=== PATIENT | female | born 1955 | race Caucasian/White ===

== ENCOUNTER 2017-06-05 19:41 | Inpatient (IN) | payer OTHER, SELFPAY ==
[~2017-06-05] VITALS: Ht 160 cm; Wt 37.6 kg
[2017-06-05] MEDS ORDERED: AZITHROMYCIN 500MG+NS 250ML 250 ML IV ONE (20:30)
[2017-06-05] MEDS ORDERED: CEFTRIAXONE SODIUM 1 GM ONE (20:30)
[2017-06-05] MEDS ORDERED: METHYLPREDNISOLONE SOD SUCC 40MG/ML 1ML ONE (20:30)
[2017-06-05 21:03] LABS: BASOPHILS % (AUTO) 0.5 % (0.0-5.0); EOSINOPHILS % (AUTO) 0.2 % (0.0-8.0); HEMATOCRIT 41.8 % (36-48); LYMPHOCYTES % (AUTO) 14.5 % (21.0-51.0); MEAN CORPUSCULAR HEMOGLOBIN 33.8 pg (27.0-33.0); MEAN CORPUSCULAR HGB CONC 34.4 g/dL (32.0-36.0); MEAN CORPUSCULAR VOLUME 98.3 fL (79-99); MONOCYTES % (AUTO) 6.5 % (3.0-13.0); NEUTROPHILS % (AUTO) 78.3 % (40.0-77.0); PLATELET COUNT (AUTO) 311 K/uL (130-400); RED BLOOD CELL COUNT(AUTO) 4.26 MIL/uL (4.00-5.50); RED CELL DISTRIBUTION WIDTH 13.7 % (11.0-15.5)
[2017-06-05] MEDS ORDERED: IPRATROPIUM/ALBUTEROL SULFATE 3 ML SOLUTION IH ONE (21:29)
[2017-06-05 21:58] LABS: CREATININE 0.7 mg/dL (0.5-1.5)
[2017-06-05 22:05] LABS: ALBUMIN 3.8 g/dL (3.5-5.0); BILIRUBIN,TOTAL 0.5 mg/dL (0.2-1.0); TOTAL PROTEIN, SERUM 6.9 g/dL (6.0-8.3)
[2017-06-06] MEDS ORDERED: METHYLPREDNISOLONE SOD SUCC 40MG/ML 1ML ONE ×2 (05:47→14:30)
[2017-06-06 06:02] LABS: BASOPHILS % (AUTO) 0.3 % (0.0-5.0); EOSINOPHILS % (AUTO) 0.1 % (0.0-8.0); LYMPHOCYTES % (AUTO) 8.4 % (21.0-51.0); MEAN CORPUSCULAR HEMOGLOBIN 33.4 pg (27.0-33.0); MEAN CORPUSCULAR VOLUME 98.3 fL (79-99); MONOCYTES % (AUTO) 1.3 % (3.0-13.0); NEUTROPHILS % (AUTO) 89.9 % (40.0-77.0); PLATELET COUNT (AUTO) 288 K/uL (130-400); RED BLOOD CELL COUNT(AUTO) 4.38 MIL/uL (4.00-5.50); RED CELL DISTRIBUTION WIDTH 13.6 % (11.0-15.5); WHITE BLOOD COUNT (AUTO) 5.7 K/uL (4.8-10.8)
[2017-06-06 06:12] LABS: CREATININE 0.6 mg/dL (0.5-1.5); POTASSIUM 4.4 mmol/L (3.5-5.1)
[2017-06-06 06:17] LABS: ALBUMIN 3.5 g/dL (3.5-5.0); BILIRUBIN,TOTAL 0.4 mg/dL (0.2-1.0); TOTAL PROTEIN, SERUM 5.9 g/dL (6.0-8.3)
[2017-06-06] MEDS ORDERED: HYDROCODONE/ACETAMINOPHEN 7.5/325 MG TAB ONE (11:06)
[2017-06-06] MEDS ORDERED: IPRATROPIUM/ALBUTEROL SULFATE 3 ML SOLUTION IH ONE (14:45)
[2017-06-06] MEDS ORDERED: ACETAMINOPHEN 325 MG TAB ONE (17:31)
[2017-06-06 18:08] VITALS: BP 149/90
[2017-06-06] MEDS ORDERED: ENOXAPARIN SODIUM 40 MG/0.4 ML SYRINGE SQ SCH (18:56)
[2017-06-06] MEDS ORDERED: CLONIDINE HCL 0.1 MG TABLET PO PRN (19:00)
[2017-06-06] MEDS ORDERED: POTASSIUM CHLORIDE 20 MEQ ERTAB PO PRN (19:00)
[2017-06-06] MEDS ORDERED: ONDANSETRON HCL 4 MG/2 ML VIAL IVP PRN (19:00)
[2017-06-06] MEDS ORDERED: DEXTROSE 50%-WATER 50 ML DISP.SYRIN IV PRN (19:00)
[2017-06-06] MEDS ORDERED: ZOLPIDEM TARTRATE 5 MG TAB PO PRN (19:00)
[2017-06-06] MEDS ORDERED: DIPHENHYDRAMINE HCL 25 MG CAPSULE PO PRN (19:00)
[2017-06-06] MEDS ORDERED: LACTULOSE 20 GM/30 ML UDCUP PO PRN (19:00)
[2017-06-06] MEDS ORDERED: ACETAMINOPHEN 325 MG TAB PO PRN (19:00)
[2017-06-06] MEDS ORDERED: POTASSIUM CHLORIDE 10% ELIXIR 20 MEQ/15 ML UDCUP PO PRN (19:00)
[2017-06-06] MEDS ORDERED: GLUCAGON 1MG KIT 1 MG ML IM PRN (19:00)
[2017-06-06] MEDS ORDERED: CEFTRIAXONE SODIUM 1 GM IVP SCH (19:00)
[2017-06-06] MEDS ORDERED: LIDOCAINE HCL-MPF 1% 2ML VIAL IJ PRN (19:00)
[2017-06-06] MEDS ORDERED: POTASSIUM CHLORIDE 20MEQ/100ML 100 ML IV PRN (19:00)
[2017-06-06] MEDS ORDERED: GUAIFENESIN-DM 200/20 MG 10 ML PO PRN (19:00)
[2017-06-06] MEDS ORDERED: IPRATROPIUM/ALBUTEROL SULFATE 3 ML SOLUTION IH PRN (19:00)
[2017-06-06] MEDS ORDERED: SODIUM CHLORIDE 0.9% 10 ML VIAL IVP SCH (19:00)
[2017-06-06 20:00] VITALS: BP 125/50
[2017-06-06] MEDS ORDERED: AZITHROMYCIN 500MG+NS 250ML 250 ML IV SCH (20:00)
[2017-06-06] MEDS: HYDROCODONE/ACETAMINOPHEN 7.5/325 MG TAB PO PRN (20:55)
[2017-06-06] MEDS: METHYLPREDNISOLONE SOD SUCC 125MG/2ML VIAL IVP SCH (20:55)
[2017-06-06] MEDS ORDERED: FAMOTIDINE 20MG TAB 20 MG TAB PO SCH (21:00)
[2017-06-06] MEDS: INSULIN R PO SSI SQ SCH (21:09)
[2017-06-06] MEDS: IPRATROPIUM/ALBUTEROL SULFATE 3 ML SOLUTION IH SCH (23:33)
[2017-06-06 23:52] VITALS: BP 125/68
[2017-06-07] VITALS: BP 125/68
[2017-06-07 03:57] VITALS: BP 147/76
[2017-06-07 04:07] LABS: HEMATOCRIT 41.5 % (36-48); MEAN CORPUSCULAR HEMOGLOBIN 34.2 pg (27.0-33.0); MEAN CORPUSCULAR HGB CONC 34.5 g/dL (32.0-36.0); MEAN CORPUSCULAR VOLUME 99.3 fL (79-99); PLATELET COUNT (AUTO) 322 K/uL (130-400); RED BLOOD CELL COUNT(AUTO) 4.18 MIL/uL (4.00-5.50); RED CELL DISTRIBUTION WIDTH 13.4 % (11.0-15.5); WHITE BLOOD COUNT (AUTO) 10.6 K/uL (4.8-10.8)
[2017-06-07 04:18] LABS: ALBUMIN 3.2 g/dL (3.5-5.0); BILIRUBIN,TOTAL 0.3 mg/dL (0.2-1.0); CREATININE 0.8 mg/dL (0.5-1.5); POTASSIUM 4.3 mmol/L (3.5-5.1); TOTAL PROTEIN, SERUM 5.6 g/dL (6.0-8.3)
[2017-06-07] MEDS: METHYLPREDNISOLONE SOD SUCC 125MG/2ML VIAL IVP SCH (05:46)
[2017-06-07] MEDS: HYDROCODONE/ACETAMINOPHEN 7.5/325 MG TAB PO PRN (06:03)
[2017-06-07] MEDS: INSULIN R PO SSI SQ SCH (06:03)
[2017-06-07] MEDS: IPRATROPIUM/ALBUTEROL SULFATE 3 ML SOLUTION IH SCH (06:49)
[2017-06-07] MEDS ORDERED: PRED20TA3 PO (07:04)
[2017-06-07] MEDS ORDERED: PNEUMOCOCCAL VACCINE POLYVALENT 0.5 ML/VIAL [PPV] IM SCH (07:30)
[2017-06-07] MEDS ORDERED: FLU VACC QS2017-18 36MOS UP/PF 60 MCG/0.5 ML ML IM SCH (07:30)
[2017-06-07 08:29] VITALS: BP 138/81
[2017-06-07] MEDS ORDERED: ENOXAPARIN SODIUM 40 MG/0.4 ML SYRINGE SQ SCH (09:00)
[2017-06-07] MEDS ORDERED: CEFTRIAXONE SODIUM 1 GM IVP SCH (13:00)
[2017-06-07] MEDS ORDERED: AZITHROMYCIN 500MG+NS 250ML 250 ML IV SCH (13:00)
== END 2017-06-07 10:50 | disposition home or self-care (01) | DRG 192 ==
LOC: EDH 19:41 → EDHIP 19:42 → 3AH 06-06 17:34
PROVIDERS: ADMIT Internal Medicine; ATTEND Internal Medicine
PROC: 3E0234Z Introduction of Serum, Toxoid and Vaccine into Muscle, Percutaneous Approach (ICD-10-PCS; principal; 2017-06-05)
PROC: 3E0234Z Introduction of Serum, Toxoid and Vaccine into Muscle, Percutaneous Approach (ICD-10-PCS; 2017-06-05)
DX: J44.1 Chronic obstructive pulmonary disease with (acute) exacerbation (principal); F17.210 Nicotine dependence, cigarettes, uncomplicated; Z23 Encounter for immunization
CPT/HCPCS: 36415; 71046; 71250; 80053; 82948; 85025; 85027; 90732; 93005; 94010; 94640; 94664; G0008; G0009; J0456; J0696; J1815; J2920; J2930; Q2038

== ENCOUNTER 2021-10-11 13:33 | Emergency (ER) | payer MEDICARE ==
[~2021-10-11] VITALS: Ht 162.6 cm; Wt 45.4 kg
[~2021-10-11 13:33] MED LIST: PRED20TA3 PO
[2021-10-11 14:15] LABS: BASOPHILS % (AUTO) 0.4 % (0.0-5.0); EOSINOPHILS % (AUTO) 0.4 % (0.0-8.0); HEMATOCRIT 42.1 % (36-48); LYMPHOCYTES % (AUTO) 12.7 % (21.0-51.0); MEAN CORPUSCULAR HEMOGLOBIN 30.4 pg (27.0-33.0); MEAN CORPUSCULAR HGB CONC 32.5 g/dL (32.0-36.0); MEAN CORPUSCULAR VOLUME 93.3 fL (79-99); MONOCYTES % (AUTO) 7.9 % (3.0-13.0); NEUTROPHILS % (AUTO) 75.1 % (40.0-77.0); PLATELET COUNT (AUTO) 485 K/uL (130-400); RED BLOOD CELL COUNT(AUTO) 4.51 MIL/uL (4.00-5.50); RED CELL DISTRIBUTION WIDTH 12.3 % (11.0-15.5); WHITE BLOOD COUNT (AUTO) 17.6 K/uL (4.8-10.8)
[2021-10-11 14:48] LABS: CREATININE 1.1 mg/dL (0.5-1.5); POTASSIUM 3.9 mmol/L (3.5-5.1)
[2021-10-11 14:54] LABS: ALBUMIN 3.1 g/dL (3.5-5.0); BILIRUBIN,TOTAL 0.7 mg/dL (0.2-1.0); TOTAL PROTEIN, SERUM 6.6 g/dL (6.0-8.3)
[2021-10-11] MEDS ORDERED: LEVO500T90 PO (15:18)
[2021-10-11] MEDS ORDERED: CEFTRIAXONE 1G VIAL ONE (15:23)
[2021-10-11] MEDS ORDERED: CEFTRIAXONE 1G VIAL IVP ONE (15:30)
[2021-10-11] MEDS ORDERED: LIDOCAINE HCL-MPF 1% 2ML VIAL IV SCH (15:30)
[2021-10-11] MEDS ORDERED: AZITHROMYCIN 250 MG TABLET PO ONE (15:30)
[2021-10-11 15:31] VITALS: BP 115/47
== END 2021-10-11 15:30 | disposition home or self-care (01) ==
LOC: EDH 13:33
DX: J43.9 Emphysema, unspecified (principal); D72.829 Elevated white blood cell count, unspecified; I10 Essential (primary) hypertension; Z88.6 Allergy status to analgesic agent
CPT/HCPCS: 36415; 71045; 80053; 83605; 85025; 87040 ×2; 93005; 96374; 99285; J0696; J3490

== ENCOUNTER 2024-09-16 12:45 | Inpatient (IN) | payer MEDICARE ==
[~2024-09-16] VITALS: Ht 160 cm; Wt 41.3 kg
[~2024-09-16 12:45] MED LIST changes: +LEVO-70 PO
--- NOTE | 2024-09-16 12:57 | NUR ---
PT JUST NOW PLACED IN MY ED BED 11 BY [facility].
[2024-09-16] MEDS: HYDROcodone/APAP 5/325 1 TAB TABLET PO ONE (13:00)
--- NOTE | 2024-09-16 13:13 | ERN ---
General Chief Complaint: Shortness of Breath Stated Complaint: SOB Time Seen by MD: 12:49 History of Present Illness Initial Comments 69F brought in by EMS from home for respiratory distress, cough, and hypoxia. Patient reports for the last week or so she was had increased cough and sputum production. No fevers. She has a history of COPD. She was oxygen to use at home as needed. She reports lately she has been using it more. EMS found the patient to have an oxygen saturation of 83% on room air. Patient was cachectic. She was mildly tachypneic. She was wheezing all over. She was nontoxic. She denies any vomiting or diarrhea. She does report some pleuritic type chest discomfort, which is chronic, she takes [place] b.i.d.. She takes Trelegy. 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 Allergies: Coded Allergies: tramadol (Unverified Allergy, Severe, itching, 06/06/17) Home Meds Active Scripts Levofloxacin (Levofloxacin) 500 Mg Tablet, 1 TAB PO DAILY for 10 Days, #10 TAB 0 Refills Prov:ASIF PEARSON 10/11/21 Reported Medications Prednisone (Prednisone) 20 Mg Tablet, 20 MG PO 2 tabs x2 days, then, TAB 06/07/17 Past Medical History Past Medical History: COPD, Hypertension Past Surgical History: Other Surgical History Other: LUNG SX Family History Family History: Negative Social History Social History: Negative ROS Dictation CONSTITUTIONAL: No chills, no fever, no weakness, no diaphoresis, no malaise. HEAD/FACE: No signs of trauma. EENT: No eye pain, no blurred vision, no tearing, no double vision, no ear pain, no ear discharge, no nose pain, no nasal congestion, no throat pain, no throat swelling, no mouth pain. RESPIRATORY: Dyspnea and productive cough CARDIOVASCULAR: No chest pain, no edema, no palpitations, no syncope. GASTROINTESTINAL/ABDOMINAL: No abdominal pain, no constipation, no diarrhea, no nausea, no vomiting. GENITOURINARY: No abnormal discharge, no dysuria, no frequent urination, no hematuria. No complaints of pain in the genitals. MUSCULOSKELETAL: No back pain, no gout, no joint pain, no joint swelling, no muscle pain, no muscle stiffness, no neck pain. INTEGUMENTARY: No change in color, no change in hair/nails, no dryness, no lesion, no lumps, no rash. NEUROLOGICAL/PSYCH: No anxiety, not depressed, no emotional problem, no headache, no numbness, no pre-existing deficit, no history of seizures, no tremors, no weakness. HEMATOLOGIC/LYMPHATIC: Not anemic, no history of blood clots, no apparent bleeding, no bruising, glands not swollen. All Systems Negative, Except as Noted. Physical Exam Physical Exam Dictation VITAL SIGNS: Reviewed. GENERAL APPEARANCE: Alert, oriented x3, mild tachypnea distress, cachectic HEAD AND FACE: Non-traumatic. EYES: PERRL, pink conjunctivas, eyelid no trauma, anterior chamber clear. EARS: Pinnas intact and no signs of trauma or erythema. Ear canals clear and no discharge. TMs no erythema. NOSE: No discharge, no bleeding. OROPHARYNX: Mouth normal, teeth no caries, tongue pink. Pharynx clear, no erythema. Tonsils no exudates, no abscesses noted. Mucous membrane moist. NECK: Supple, non-tender, no thyromegaly, no masses, no JVD, no bruits. BREAST: Deferred. CHEST: No tenderness, no crepitus, no paradoxical movement, no retractions. LUNGS: Bilateral wheezing prolonged expiratory phase rhonchus. Mild tachypnea. Minimal accessory muscle use HEART: Regular rate, regular rhythm, no murmur, no gallops. VASCULAR: No peripheral edema. ABDOMEN: Soft, positive bowel sounds, nondistended, no guarding, nontender, no rebound, no masses no hepatomegaly, no splenomegaly, no Jennings's sign, no hernias. RECTAL: Deferred. GENITAL: Deferred. NEUROLOGICAL: Normal speech, gross motor function intact, gross sensory function intact. MUSCULOSKELETAL: Neck nontender, full range of motion, back nontender, full range of motion. EXTREMITIES: Nontender, full range of motion. SKIN: Color pink, dry, no turgor, no rash, no lacerations, no abrasions, no contusions. LYMPHATICS: Deferred. Results Laboratory and Microbiology Lab and Micro Result Laboratory Tests Test 09/16/24 13:01 09/16/24 13:16 White Blood Count 18.5 K/uL (4.8-10.8) H Red Blood Count 3.83 MIL/uL (4.00-5.50) L Hemoglobin 11.9 g/dL (12.0-16.0) L Hematocrit 36.2 % (36-48) Mean Corpuscular Volume 94.5 fL (79-99) Mean Corpuscular Hemoglobin 31.1 pg (27.0-33.0) Mean Corpuscular Hemoglobin Concent 32.9 g/dL (32.0-36.0) Red Cell Distribution Width 11.7 % (11.0-15.5) Platelet Count 520 K/uL (130-400) H Mean Platelet Volume 9.1 fL (7.5-10.5) Immature Granulocyte % (Auto) 1.0 % (0-1) Neutrophils (%) (Auto) 83.1 % (40.0-77.0) H Lymphocytes (%) (Auto) 7.7 % (21.0-51.0) L Monocytes (%) (Auto) 7.8 % (3.0-13.0) Eosinophils (%) (Auto) 0.1 % (0.0-8.0) Basophils (%) (Auto) 0.3 % (0.0-5.0) Neutrophils # (Auto) 15.4 K/uL (1.8-7.7) H Lymphocytes # (Auto) 1.4 K/uL (1.0-4.8) Monocytes # (Auto) 1.4 K/uL (0.1-1.0) H Eosinophils # (Auto) 0.01 K/uL (0.00-0.70) Basophils # (Auto) 0.05 K/uL (0.00-0.20) Absolute Immature Granulocyte (auto 0.19 K/uL (0-1) Nucleated Red Blood Cells 0.0 % (0.0-0.19) White Cell Morphology Comment See comments Sodium Level 141 mmol/L (136-145) Potassium Level 3.9 mmol/L (3.5-5.1) Chloride Level 100 mmol/L (101-111) L Carbon Dioxide Level 35 mmol/L (21-32) H Blood Urea Nitrogen 23 mg/dL (7-18) H Creatinine 1.0 mg/dL (0.5-1.0) Glomerular Filtration Rate Calc 60 mL/min (>90) Random Glucose 119 mg/dL (70-105) H Total Calcium 9.2 mg/dL (8.5-10.1) Total Creatine Kinase 78 U/L (21-232) Troponin I High Sensitivity 21.4 ng/L (4-50) B-Type Natriuretic Peptide 282 pg/mL (0-100) H Blood Gas Specimen Type Arterial Arterial Blood pH 7.405 (7.350-7.450) Arterial Blood Partial Pressure CO2 45 mmHg (32-45) Arterial Blood Partial Pressure O2 77.6 mmHg (83.0-108.0) L Arterial Blood HCO3 27.3 mmol/L (21.0-28.0) Arterial Blood Oxygen Saturation 94.7 % (94.0-98.0) Arterial Blood Base Excess 2.1 mmol/L (-2.0-3.0) Hemoglobin (Blood Gas) 12.9 g/dL (12.0-16.0) Sodium (Blood Gas) 137 MMOL/L (136-145) Bedside Potassium (Blood Gas) 3.9 MMOL/L (3.4-4.5) Bedside Chloride (Blood Gas) 100 MMOL/L (98-107) Bedside Glucose (Blood Gas) 123 MG/DL (65-95) H Bedside Ionized Calcium (Blood Gas) 1.17 MMOL/L (1.15-1.33) Bedside Lactic Acid (Blood Gas) 1.48 MMOL/L (0.36-0.75) H Blood Gas Temperature 37.0 CELSIUS (35.5-37.0) Blood Gas Flow-by 3.00 L/min (0.00-15.00) Blood Gas Vent Mode NC (ROOM AIR) FiO2 32.0 % Blood Gas Specimen Comment RR, MDM CC: Respiratory distress Historian: Patient Comorbidities: COPD chronic pain Limitations by social determinants of health: None Differential diagnosis: COPD exacerbation, pneumonia, viral URI, sepsis, hypoxia, hypercapnia, other. Vital signs: Tachypneic breathing 20 times a minute, oxygen saturation 94% on 3 L nasal cannula. EKG: Sinus rhythm rate of 89 normal axis good R-wave progression intervals are stable no STEMI. Independently interpreted by me. Labs (independently ordered and interpreted by me ): Leukocytosis 18.5 K, left shift 83% neutrophils. No bands. Normocytic anemia hemoglobin 11.9. ABG PaO2 of 77 on 3 L nasal cannula. The pCO2 is 45. Lactic acid 1.4. Chemistry shows carbon dioxide of 35 chronic, elevated BUN to creatinine ratio consistent with dehydration. Troponin stable BNP stable CK stable. CXR (independently ordered and interpreted by me ): Emphysematous lungs, no cardiomegaly, possible infiltrate in the left upper lobe. Treatment in ED: DuoNeb, IV steroids, IV Rocephin and nose for medicine, IV fluids, p.o. [place]. Plan: We will admit for COPD exacerbation Consultation: Dr. Lara for admission ED Course Orders Procedure Category Date Status Time Arterial Blood Gas RT 09/16/24 Transmitted 12:50 Cbc With Differential LAB 09/16/24 Complete 12:50 B-Type Natriuretic LAB 09/16/24 Complete Peptide 12:50 Cardiac Panel LAB 09/16/24 Complete 12:50 Chest 1vw RAD 09/16/24 Taken 12:50 12 Lead Ekg Tracing- EKG 09/16/24 Complete Technical 12:50 Lactated Ringers PHA 09/16/24 In Process 1000ml (Lactated 13:00 Ipratropium/Albuterol PHA 09/16/24 Complete Neb (Duoneb) 13:00 Methylprednisolone PHA 09/16/24 Complete Succ 125mg (Solu-Medr 13:00 Basic Metabolic Panel LAB 09/16/24 Complete 12:50 Hydrocodone/Apap PHA 09/16/24 Complete 5/325 ([place] 5/325mg) 13:00 Azithromycin 500mg+Ns PHA 09/16/24 In Process 250ml (Azithromyci 14:00 Ceftriaxone 1g Vial PHA 09/16/24 In Process (Rocephine 1g Inj) 13:00 Arterial Blood Gas LAB 09/16/24 Complete Arterial + 13:16 Blood Cult OLEKSANDR 09/16/24 In Process 13:53 Current Medications Medications (Trade) Dose Ordered Sig/Ivvi Route PRN Reason Start Time Stop Time Status Last Admin Dose Admin Acetaminophen/ Hydrocodone Bitart (NORco 5/325MG) 1 tab ONCE ONCE PO 09/16/24 13:00 09/16/24 13:01 DC Albuterol (DUOneb) 1 udvial ONCE ONCE IH 09/16/24 13:00 09/16/24 13:01 DC 09/16/24 13:20 Azithromycin 250 ml @ 250 mls/hr Q24H IVPB 09/16/24 14:00 09/26/24 13:59 5/6/25 14:46 Ceftriaxone Sodium (ROCEphine 1G INJ) 1 gm Q24H IVPB 09/16/24 13:00 09/26/24 12:59 09/16/24 14:46 Lactated Ringer's 1,000 ml @ 125 mls/hr ONCE ONCE IV 09/16/24 13:00 09/16/24 20:59 09/16/24 13:34 Methylprednisolone Sodium Succinate (Solu-medROL 125MG) 125 mg ONCE ONCE IVP 09/16/24 13:00 09/16/24 13:01 DC 09/16/24 13:34 Vital Signs Date Time Temp Pulse Resp B/P (MAP) Pulse Ox O2 Delivery O2 Flow Rate FiO2 09/16/24 13:21 96 28 09/16/24 12:46 98.6 84 24 120/80 95 Nasal Cannula 3.0 DX & DISP Disposition: Inpatient Departure Impression: Primary Impression: COPD with acute exacerbation Additional Impression: Respiratory failure with hypoxia Condition: Stable Referrals: ABE LARA MD (PCP) ABELARDO UMAÑA DO September 16, 2024 13:13
--- NOTE | 2024-09-16 13:16 | NUR ---
PER EMS REPORT. HX COPD WAS GIVEN NEB TX W/SATS INCREASING FROM MID 80'S TO LOW 90"S. PT USES HOME OXYGEN
[2024-09-16 13:18] LABS: ABG BASE EXCESS 2.1 mmol/L (-2.0-3.0); ABG HCO3 27.3 mmol/L (21.0-28.0); ABG OXYGEN SATURATION 94.7 % (94.0-98.0); ABG PCO2 45 mmHg (32-45); ABG PH 7.405 (7.350-7.450); CARBON MONOXIDE 0.4 % (0.5-1.5); HHb 5.3; PO2, ARTERIAL BG 77.6 mmHg (83.0-108.0); VENT MODE, BG NC (ROOM AIR)
[2024-09-16] MEDS: IpraTROPium/alBUTERol SULFATE 3 ML SOLUTION IH ONE (13:20)
[2024-09-16 13:21] VITALS: PULSE 96; RESP 28
[2024-09-16 13:25] LABS: BASOPHILS # (AUTO) 0.05 K/uL (0.00-0.20); BASOPHILS % (AUTO) 0.3 % (0.0-5.0); EOSINOPHILS # (AUTO) 0.01 K/uL (0.00-0.70); EOSINOPHILS % (AUTO) 0.1 % (0.0-8.0); HEMATOCRIT 36.2 % (36-48); IMMATURE GRANULOCYTE ABSOLUTE 0.19 K/uL (0-1); LYMPHOCYTES # (AUTO) 1.4 K/uL (1.0-4.8); LYMPHOCYTES % (AUTO) 7.7 % (21.0-51.0); MEAN CORPUSCULAR HEMOGLOBIN 31.1 pg (27.0-33.0); MEAN CORPUSCULAR HGB CONC 32.9 g/dL (32.0-36.0); MEAN CORPUSCULAR VOLUME 94.5 fL (79-99); MONOCYTES # (AUTO) 1.4 K/uL (0.1-1.0); MONOCYTES % (AUTO) 7.8 % (3.0-13.0); NEUTROPHILS # (AUTO) 15.4 K/uL (1.8-7.7); NEUTROPHILS % (AUTO) 83.1 % (40.0-77.0); PLATELET COUNT (AUTO) 520 K/uL (130-400); RED BLOOD CELL COUNT(AUTO) 3.83 MIL/uL (4.00-5.50); RED CELL DISTRIBUTION WIDTH 11.7 % (11.0-15.5); WHITE BLOOD COUNT (AUTO) 18.5 K/uL (4.8-10.8)
[2024-09-16] MEDS: Solu-medROL 125MG VIAL IVP ONE (13:34)
[2024-09-16] MEDS: LACTATED RINGERS 1000ML 1,000 ML IV ONE (13:34)
[2024-09-16 13:35] LABS: POTASSIUM 3.9 mmol/L (3.5-5.1)
--- NOTE | 2024-09-16 13:36 | EKG ---
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
[2024-09-16 13:55] LABS: B-TYPE NATRIURETIC PEPTIDE 282 pg/mL (0-100)
[2024-09-16] MEDS: AZITHROMYCIN 500MG+NS 250ML 250 ML IVPB SCH (14:46)
[2024-09-16] MEDS: cefTRIAXone 1G VIAL IVPB SCH (14:46)
[2024-09-16] MEDS ORDERED: IpraTROPium/alBUTERol SULFATE 3 ML SOLUTION IH PRN (15:00)
[2024-09-16 15:55] VITALS: PULSE 90; RESP 21; O2SAT 95
--- NOTE | 2024-09-16 16:17 | NUR ---
PT ASSISTED OOB TO [facility]SC. OXYGEN WAS REMOVED THEN PLACED BACK ONCE PT BACK ON THE STRETCHER.
--- NOTE | 2024-09-16 16:26 | HMCIMG ---
Exam Type: CHEST 1VW Clinical Information: Dyspnea/SOB Comparison: Chest x-ray October 11, 2021 Findings: Again, there is chronic hyperinflation of the lungs with interstitial pulmonary fibrotic changes of the lung apices and these findings are consistent with COPD and possible interstitial fibrotic chronic changes. There is interval development of an apparent mass lesion involving the left inferior hilum, measuring at least 4.8 cm, not present on the prior exam. This is worrisome for a neoplasm. Consider further evaluation with chest CT without contrast. IMPRESSION: Chronic pulmonary changes and interval development of a mass of the left hilum. CT chest without contrast recommended as next evaluation step.
[2024-09-16] MEDS ORDERED: IpraTROPium/alBUTERol SULFATE 3 ML SOLUTION IH SCH (17:00)
--- NOTE | 2024-09-16 17:44 | NUR ---
FOOD TRAY OFFERED. FOOD CUT UP, TEA PREPARED AND BREAD BUTTERED FOR PT.
[2024-09-16 18:40] VITALS: PULSE 90; RESP 18; O2SAT 97
[2024-09-16] MEDS: IpraTROPium/alBUTERol SULFATE 3 ML SOLUTION IH SCH (18:40)
--- NOTE | 2024-09-16 19:15 | NUR ---
REPORT ENDORSED TO JC SIMS.
--- NOTE | 2024-09-16 19:16 | NUR ---
MEDICDATION RECONCILIATION: NO MEDICATIONS W/PT.
[2024-09-16] MEDS: Solu-medROL 40MG VIAL IVP SCH (20:44)
--- NOTE | 2024-09-16 21:57 | HP ---
HISTORY AND PHYSICAL NOTE DATE OF CONSULTATION: 09/16/24 REASON FOR CONSULTATION: dyspnea HISTORY OF PRESENT ILLNESS: 69F brought in by EMS from home for respiratory distress, cough, and hypoxia. Patient reports for the last week or so she was had increased cough and sputum production. No fevers. She has a history of COPD. She was oxygen to use at home as needed. She reports lately she has been using it more. EMS found the patient to have an oxygen saturation of 83% on room air. Patient was cachectic. She was mildly tachypneic. She was wheezing all over. She was nontoxic. She denies any vomiting or diarrhea. She does report some pleuritic type chest discomfort, which is chronic, she takes [place] b.i.d.. She takes Trelegy. 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 Allergies: Coded Allergies: tramadol (Unverified Allergy, Severe, itching, 06/06/17) Home Meds Active Scripts Levofloxacin (Levofloxacin) 500 Mg Tablet, 1 TAB PO DAILY for 10 Days, #10 TAB 0 Refills Prov:ASIF PEARSON 10/11/21 Reported Medications Prednisone (Prednisone) 20 Mg Tablet, 20 MG PO 2 tabs x2 days, then, TAB 06/07/17 Past History Past Medical History Past Medical History: COPD, Hypertension Past Surgical History: Other Surgical History Other: LUNG SX Family History Family History: Negative Social History Social History: Negative Review of Systems ROS Dictation CONSTITUTIONAL: No chills, no fever, no weakness, no diaphoresis, no malaise. HEAD/FACE: No signs of trauma. EENT: No eye pain, no blurred vision, no tearing, no double vision, no ear pain, no ear discharge, no nose pain, no nasal congestion, no throat pain, no throat swelling, no mouth pain. RESPIRATORY: Dyspnea and productive cough CARDIOVASCULAR: No chest pain, no edema, no palpitations, no syncope. GASTROINTESTINAL/ABDOMINAL: No abdominal pain, no constipation, no diarrhea, no nausea, no vomiting. GENITOURINARY: No abnormal discharge, no dysuria, no frequent urination, no hematuria. No complaints of pain in the genitals. MUSCULOSKELETAL: No back pain, no gout, no joint pain, no joint swelling, no muscle pain, no muscle stiffness, no neck pain. INTEGUMENTARY: No change in color, no change in hair/nails, no dryness, no lesion, no lumps, no rash. NEUROLOGICAL/PSYCH: No anxiety, not depressed, no emotional problem, no headache, no numbness, no pre-existing deficit, no history of seizures, no tremors, no weakness. HEMATOLOGIC/LYMPHATIC: Not anemic, no history of blood clots, no apparent bleeding, no bruising, glands not swollen. All Systems Negative, Except as Noted. ALLERGIES: Coded Allergies: tramadol (Unverified Allergy, Severe, itching, 06/06/17) HOME MEDS: Active Scripts Levofloxacin (Levofloxacin) 500 Mg Tablet, 1 TAB PO DAILY for 10 Days, #10 TAB 0 Refills Prov:ASIF PEARSON 10/11/21 Reported Medications Prednisone (Prednisone) 20 Mg Tablet, 20 MG PO 2 tabs x2 days, then, TAB 06/07/17 INPATIENT MEDS: Current Medications Medications Dose Ordered Sig/Vivi Start Time Stop Time Status Last Admin Azithromycin 250 ml @ 250 mls/hr Q24H 09/16/24 14:00 09/26/24 13:59 09/16/24 14:46 Ceftriaxone Sodium 1 gm Q24H 09/16/24 13:00 09/26/24 12:59 09/16/24 14:46 Enoxaparin Sodium 40 mg DAILY 09/17/24 09:00 10/17/24 08:59 Methylprednisolone Sodium Succinate 80 mg BID 09/16/24 21:00 10/16/24 20:59 09/16/24 20:44 Albuterol 1 UDVIAL Q4PRN PRN 09/16/24 15:00 10/16/24 14:59 Albuterol 1 udvial QIDRESP 09/16/24 18:00 10/16/24 16:59 09/16/24 18:40 VITAL SIGNS Vital Signs Date Time Temp Pulse Resp B/P (MAP) Pulse Ox O2 Delivery O2 Flow Rate FiO2 09/16/24 21:00 98.2 87 18 120/66 100 Nasal Cannula* 3 32 09/16/24 18:40 90 18 N/Cannula Low lpm 2.0 28 09/16/24 18:40 90 18 09/16/24 15:55 90 21 N/Cannula Low lpm 3.0 09/16/24 15:48 87 23 136/85 97 Nasal Cannula* 3 32 09/16/24 13:21 96 28 09/16/24 12:46 98.6 84 24 120/80 95 Nasal Cannula 3.0 PHYSICAL EXAM Physical Exam Physical Exam Physical Exam Dictation VITAL SIGNS: Reviewed. GENERAL APPEARANCE: Alert, oriented x3, mild tachypnea distress, cachectic HEAD AND FACE: Non-traumatic. EYES: PERRL, pink conjunctivas, eyelid no trauma, anterior chamber clear. EARS: Pinnas intact and no signs of trauma or erythema. Ear canals clear and no discharge. TMs no erythema. NOSE: No discharge, no bleeding. OROPHARYNX: Mouth normal, teeth no caries, tongue pink. Pharynx clear, no erythema. Tonsils no exudates, no abscesses noted. Mucous membrane moist. NECK: Supple, non-tender, no thyromegaly, no masses, no JVD, no bruits. BREAST: Deferred. CHEST: No tenderness, no crepitus, no paradoxical movement, no retractions. LUNGS: Bilateral wheezing prolonged expiratory phase rhonchus. Mild tachypnea. Minimal accessory muscle use HEART: Regular rate, regular rhythm, no murmur, no gallops. VASCULAR: No peripheral edema. ABDOMEN: Soft, positive bowel sounds, nondistended, no guarding, nontender, no rebound, no masses no hepatomegaly, no splenomegaly, no Jennings's sign, no he rnias. RECTAL: Deferred. GENITAL: Deferred. NEUROLOGICAL: Normal speech, gross motor function intact, gross sensory functio n intact. MUSCULOSKELETAL: Neck nontender, full range of motion, back nontender, full range of motion. EXTREMITIES: Nontender, full range of motion. SKIN: Color pink, dry, no turgor, no rash, no lacerations, no abrasions, no contusions. LYMPHATICS: Deferred. LABORATORY RESULTS Laboratory Tests 09/16/24 13:01: White Blood Count 18.5, Red Blood Count 3.83, Hemoglobin 11.9, Hematocrit 36.2, Mean Corpuscular Volume 94.5, Mean Corpuscular Hemoglobin 31.1, Mean Corpuscular Hemoglobin Concent 32.9, Red Cell Distribution Width 11.7, Platelet Count 520, Mean Platelet Volume 9.1, Immature Granulocyte % (Auto) 1.0, Neutrophils (%) (Auto) 83.1, Lymphocytes (%) (Auto) 7.7, Monocytes (%) (Auto) 7.8, Eosinophils (%) (Auto) 0.1, Basophils (%) (Auto) 0.3, Neutrophils # (Auto) 15.4, Lymphocytes # (Auto) 1.4, Monocytes # (Auto) 1.4, Eosinophils # (Auto) 0.01, Basophils # (Auto) 0.05, Absolute Immature Granulocyte (auto 0.19, Nucleated Red Blood Cells 0.0, White Cell Morphology Comment See comments, Sodium Level 141, Potassium Level 3.9, Chloride Level 100, Carbon Dioxide Level 35, Blood Urea Nitrogen 23, Creatinine 1.0, Glomerular Filtration Rate Calc 60, Random Glucose 119, Total Calcium 9.2, Total Creatine Kinase 78, Troponin I High Sensitivity 21.4, B-Type Natriuretic Peptide 282 09/16/24 13:16: Blood Gas Specimen Type Arterial, Arterial Blood pH 7.405, Arterial Blood Partial Pressure CO2 45, Arterial Blood Partial Pressure O2 77.6, Arterial Blood HCO3 27.3, Arterial Blood Oxygen Saturation 94.7, Arterial Blood Base Excess 2.1, Hemoglobin (Blood Gas) 12.9, Sodium (Blood Gas) 137, Bedside Potassium (Blood Gas) 3.9, Bedside Chloride (Blood Gas) 100, Bedside Glucose (Blood Gas) 123, Bedside Ionized Calcium (Blood Gas) 1.17, Bedside Lactic Acid (Blood Gas) 1.48, Blood Gas Temperature 37.0, Blood Gas Flow-by 3.00, Blood Gas Vent Mode NC, FiO2 32.0, Blood Gas Specimen Comment RR, PROBLEM LIST: (1) COPD with acute exacerbation ICD Codes: J44.1 - Chronic obstructive pulmonary disease with (acute) exacerbation (2) Leukocytosis ICD Codes: D72.829 - Elevated white blood cell count, unspecified (3) Respiratory failure with hypoxia ICD Codes: J96.91 - Respiratory failure, unspecified with hypoxia PLAN steroids, antibiotics, bronchodilators ABE LARA MD September 16, 2024 21:57
[2024-09-16] MEDS ORDERED: METO25TA6 PO (23:45)
[2024-09-16] MEDS ORDERED: D-ME118S56 PO (23:45)
[2024-09-16] MEDS ORDERED: IPRA4AER IH (23:45)
[2024-09-16] MEDS ORDERED: FLUT1BLS3 IH (23:45)
[2024-09-16] MEDS ORDERED: ASPI-1146 PO (23:45)
[2024-09-16] MEDS ORDERED: ALPR1TAB7 PO (23:45)
[2024-09-17] VITALS (13 sets, daily range): BP systolic 124–153; BP diastolic 68–95; PULSE 74–119; RESP 17–20; TEMP 97.4–98.4; O2SAT 93–96
[2024-09-17 04:59] LABS: BASOPHILS # (AUTO) 0.02 K/uL (0.00-0.20); BASOPHILS % (AUTO) 0.2 % (0.0-5.0); EOSINOPHILS # (AUTO) 0.02 K/uL (0.00-0.70); EOSINOPHILS % (AUTO) 0.2 % (0.0-8.0); HEMATOCRIT 35.7 % (36-48); IMMATURE GRANULOCYTE ABSOLUTE 0.09 K/uL (0-1); LYMPHOCYTES # (AUTO) 0.8 K/uL (1.0-4.8); LYMPHOCYTES % (AUTO) 6.4 % (21.0-51.0); MEAN CORPUSCULAR HEMOGLOBIN 31.1 pg (27.0-33.0); MEAN CORPUSCULAR HGB CONC 33.3 g/dL (32.0-36.0); MEAN CORPUSCULAR VOLUME 93.2 fL (79-99); MONOCYTES # (AUTO) 0.1 K/uL (0.1-1.0); MONOCYTES % (AUTO) 1.1 % (3.0-13.0); NEUTROPHILS # (AUTO) 11.7 K/uL (1.8-7.7); NEUTROPHILS % (AUTO) 91.4 % (40.0-77.0); PLATELET COUNT (AUTO) 487 K/uL (130-400); RED BLOOD CELL COUNT(AUTO) 3.83 MIL/uL (4.00-5.50); RED CELL DISTRIBUTION WIDTH 11.6 % (11.0-15.5); WHITE BLOOD COUNT (AUTO) 12.8 K/uL (4.8-10.8)
[2024-09-17 05:28] LABS: ALBUMIN 2.4 g/dL (3.5-5.0); BILIRUBIN,TOTAL 0.4 mg/dL (0.2-1.0); CREATININE 0.9 mg/dL (0.5-1.0)
--- NOTE | 2024-09-17 06:38 | NUR ---
DR LARA IN WITH PATIENT, N/O SOLUMEDROL IV 40MG BID
--- NOTE | 2024-09-17 09:20 | NUR ---
DCP: HOME Pt currently lives with her sister Briana Reilly (does not have a phone). Pt reports using a cane at home to move around. Pt does not have any provider or home health services. Pt reports being able to complete ADLs independently. PCP is Dr. Tio King and uses [facility] [employer] for any RX needs. At [place] pt wants to return home and family can assist with transportation. Addendum: 09/17/24 at 0922 by KAILEY DIAZ SS Amended: Links added.
[2024-09-17] MEDS: Solu-medROL 40MG VIAL IVP SCH (09:56)
[2024-09-17] MEDS: ENOXAPARIN SODIUM 40 MG/0.4 ML SYRINGE SQ SCH (09:56)
[2024-09-17] MEDS ORDERED: D-ME118S56 PO (10:40)
[2024-09-17] MEDS: metoPROLOL tartRATE 25 MG TAB PO SCH (11:29)
[2024-09-17] MEDS ORDERED: BPM PO PRN (11:30)
[2024-09-17] MEDS ORDERED: [UNRECOGNIZED DRUG - OTHER] PO PRN (11:30)
[2024-09-17] MEDS ORDERED: P EPD HCL PO PRN (11:30)
[2024-09-17] MEDS ORDERED: D METHORPHAN HB PO PRN (11:30)
[2024-09-17] MEDS ORDERED: guaiFENesin-DM 200/20MG 10ML PO PRN (14:00)
[2024-09-17] MEDS ORDERED: cefTRIAXone 1G VIAL IVPB SCH (15:00)
[2024-09-17] MEDS ORDERED: AZITHROMYCIN 500MG+NS 250ML 250 ML IVPB SCH (15:00)
--- NOTE | 2024-09-17 17:23 | PN ---
PROGRESS NOTE PROGRESS NOTE DATE OF PROGRESS NOTE: 09/17/24 SUBJECTIVE: feels better VITAL SIGNS Vital Signs Date Time Temp Pulse Resp B/P (MAP) Pulse Ox O2 Delivery O2 Flow Rate FiO2 09/17/24 14:15 110 18 09/17/24 12:00 98.2 132/78 92 Nasal Cannula 3.0 09/17/24 07:29 21 PHYSICAL EXAM: Physical Exam Physical Exam Physical Exam Dictation VITAL SIGNS: Reviewed. GENERAL APPEARANCE: Alert, oriented x3, mild tachypnea distress, cachectic HEAD AND FACE: Non-traumatic. EYES: PERRL, pink conjunctivas, eyelid no trauma, anterior chamber clear. EARS: Pinnas intact and no signs of trauma or erythema. Ear canals clear and no discharge. TMs no erythema. NOSE: No discharge, no bleeding. OROPHARYNX: Mouth normal, teeth no caries, tongue pink. Pharynx clear, no erythema. Tonsils no exudates, no abscesses noted. Mucous membrane moist. NECK: Supple, non-tender, no thyromegaly, no masses, no JVD, no bruits. BREAST: Deferred. CHEST: No tenderness, no crepitus, no paradoxical movement, no retractions. LUNGS: Bilateral wheezing prolonged expiratory phase rhonchus. Mild tachypnea. Minimal accessory muscle use HEART: Regular rate, regular rhythm, no murmur, no gallops. VASCULAR: No peripheral edema. ABDOMEN: Soft, positive bowel sounds, nondistended, no guarding, nontender, no rebound, no masses no hepatomegaly, no splenomegaly, no Jennings's sign, no hernias. RECTAL: Deferred. GENITAL: Deferred. NEUROLOGICAL: Normal speech, gross motor function intact, gross sensory function intact. MUSCULOSKELETAL: Neck nontender, full range of motion, back nontender, full range of motion. EXTREMITIES: Nontender, full range of motion. SKIN: Color pink, dry, no turgor, no rash, no lacerations, no abrasions, no contusions. LYMPHATICS: Deferred. LABORATORY: Laboratory Result(s) Test 09/17/24 04:40 White Blood Count 12.8 K/uL (4.8-10.8) Red Blood Count 3.83 MIL/uL (4.00-5.50) Hemoglobin 11.9 g/dL (12.0-16.0) Hematocrit 35.7 % (36-48) Mean Corpuscular Volume 93.2 fL (79-99) Mean Corpuscular Hemoglobin 31.1 pg (27.0-33.0) Mean Corpuscular Hemoglobin Concent 33.3 g/dL (32.0-36.0) Red Cell Distribution Width 11.6 % (11.0-15.5) Platelet Count 487 K/uL (130-400) Mean Platelet Volume 9.2 fL (7.5-10.5) Immature Granulocyte % (Auto) 0.7 % (0-1) Neutrophils (%) (Auto) 91.4 % (40.0-77.0) Lymphocytes (%) (Auto) 6.4 % (21.0-51.0) Monocytes (%) (Auto) 1.1 % (3.0-13.0) Eosinophils (%) (Auto) 0.2 % (0.0-8.0) Basophils (%) (Auto) 0.2 % (0.0-5.0) Neutrophils # (Auto) 11.7 K/uL (1.8-7.7) Lymphocytes # (Auto) 0.8 K/uL (1.0-4.8) Monocytes # (Auto) 0.1 K/uL (0.1-1.0) Eosinophils # (Auto) 0.02 K/uL (0.00-0.70) Basophils # (Auto) 0.02 K/uL (0.00-0.20) Absolute Immature Granulocyte (auto 0.09 K/uL (0-1) Nucleated Red Blood Cells 0.0 % (0.0-0.19) Sodium Level 143 mmol/L (136-145) Potassium Level 5.0 mmol/L (3.5-5.1) Chloride Level 104 mmol/L (101-111) Carbon Dioxide Level 33 mmol/L (21-32) Blood Urea Nitrogen 26 mg/dL (7-18) Creatinine 0.9 mg/dL (0.5-1.0) Glomerular Filtration Rate Calc 68 mL/min (>90) Random Glucose 138 mg/dL (70-105) Total Calcium 9.4 mg/dL (8.5-10.1) Total Bilirubin 0.4 mg/dL (0.2-1.0) Aspartate Amino Transf (AST/SGOT) 18 U/L (10-37) Alanine Aminotransferase (ALT/SGPT) 11 U/L (12-78) Alkaline Phosphatase 77 U/L (50-136) Total Protein 7.0 g/dL (6.0-8.3) Albumin 2.4 g/dL (3.5-5.0) INPATIENT MEDS: Current Medications Medications Dose Ordered Sig/Vivi Start Time Stop Time Status Last Admin Azithromycin 250 ml @ 250 mls/hr Q24H 09/16/24 14:00 09/26/24 13:59 09/17/24 14:40 Ceftriaxone Sodium 1 gm Q24H 09/16/24 13:00 09/26/24 12:59 09/17/24 13:27 Enoxaparin Sodium 40 mg DAILY 09/17/24 09:00 10/17/24 08:59 09/17/24 09:56 Albuterol 1 UDVIAL Q4PRN PRN 09/16/24 15:00 10/16/24 14:59 Albuterol 1 udvial QIDRESP 09/16/24 18:00 10/16/24 16:59 09/17/24 14:15 Methylprednisolone Sodium Succinate 40 mg BID 09/17/24 09:00 10/17/24 08:59 09/17/24 09:56 Metoprolol Tartrate 25 mg BID 09/17/24 11:30 10/17/24 11:29 09/17/24 11:29 Home Med (D-Methorphan Hb/P-Epd HCl/ ... Q4H PRN 09/17/24 11:30 10/17/24 11:29 Guaifenesin/ Dextromethorphan 5 ml Q4H PRN 09/17/24 14:00 10/17/24 13:59 PROBLEM LIST: (1) COPD with acute exacerbation ICD Code: J44.1 - Chronic obstructive pulmonary disease with (acute) exacerbation (2) Leukocytosis ICD Code: D72.829 - Elevated white blood cell count, unspecified (3) Respiratory failure with hypoxia ICD Code: J96.91 - Respiratory failure, unspecified with hypoxia PLAN: steroids, antibiotics, bronchodilators ABE LARA MD September 17, 2024 17:23
[2024-09-17] MEDS ORDERED: ALPRAZolam 1 MG TAB PO PRN (17:30)
[2024-09-17] MEDS ORDERED: IPRATROPIUM IH PRN (18:30)
[2024-09-17] MEDS ORDERED: ALBUTEROL SULFATE IH PRN (18:30)
[2024-09-18] VITALS: BP 162/87; PULSE 93; RESP 19; TEMP 98
[2024-09-18 05:12] VITALS: BP 162/97; PULSE 109; RESP 21; TEMP 98
[2024-09-18 07:07] VITALS: PULSE 103; RESP 20
[2024-09-18 07:11] VITALS: PULSE 104; RESP 20; O2SAT 96
[2024-09-18 08:00] VITALS: BP 154/93; PULSE 109; RESP 18; TEMP 97.9
[2024-09-18 09:26] VITALS: O2SAT 95
[2024-09-18] MEDS: Fluticasone/Umeclidin/Vilanter (Trelegy Ellipta 100-62.5) IH SCH (09:32)
--- NOTE | 2024-09-18 11:46 | NUR ---
DISCHARGE DC'D IV. NO COMPLICATIONS. PT AWARE TO FOLLOW UP WITH PCP IN 2-3 DAYS. ALL QUESTIONS ANSWERED.
--- NOTE | 2024-09-19 22:31 | DS ---
Discharge Summary DIAGNOSE(S): [Chronic obstructive pulmonary disease exacerbation] HOSPITAL COURSE SUMMARY: [Patient presented with shortness of breath treated with steroids which improved symptoms and discharged on tapered dose of steroids] ETL DEVELOPER(S): [None none] PROCEDURE(S)/TREATMENT(S): [None] PROBLEM(S): [] FOLLOW-UP TEST(S): [None] DISCHARGE INSTRUCTIONS: [Follow up with PCP in one week] Home Meds Reported Medications D-Methorphan Hb/P-Epd HCl/Bpm (Jfeiqpetqj-Bbtudwswzbw-Vi Syr) 2 Mg-30 Mg-10 Mg/5 Ml Syrup, 10 ML PO Q4HPRN PRN for COUGH for 6 Days, #120 ML 0 Refills 09/17/24 Ipratropium/Albuterol Sulfate (Combivent Respimat Inhal [place]) 20 Mcg-100 Mcg/Actuation Aer.w.adap, 2 PUFF IH TID PRN for SHORTNESS OF BREATH, #4 GM 0 Refills 09/16/24 Fluticasone/Umeclidin/Vilanter (Trelegy Ellipta 100-62.5-25) 100-62.5 Blst.w.dev, 1 PUFF IH DAILY for 30 Days, #1 EACH 0 Refills 09/16/24 Alprazolam (Alprazolam) 1 Mg Tablet, 0.5 MG PO DAILY PRN for anxiety for 30 Days, #90 TAB 0 Refills PRESCRIPTION BOTTLE READS 1MG PO DAILY NEEDED HOWEVER THE PATIENT STATES SHE CURRENTLY TAKES ONLY 0.5MG DAILY NEEDED FOR ANXIETY 09/16/24 Metoprolol Tartrate (Metoprolol Tartrate) 25 Mg Tablet, 1 TAB PO BID for 30 Days, #60 TAB 0 Refills 09/16/24 Discontinued Reported Medications D-Methorphan Hb/P-Epd HCl/Bpm (Otpqytvjdl-Jldbxjpurag-Qj Syr) 2 Mg-30 Mg-10 Mg/5 Ml Syrup, 10 ML PO Q4HPRN PRN for COUGH for 4 Days, #60 ML 0 Refills 09/16/24 Aspirin (Ecotrin) 325 Mg Tablet.dr, 1 TAB PO DAILY for pain for 30 Days, #60 TAB 0 Refills 09/16/24 Prednisone (Prednisone) 20 Mg Tablet, 20 MG PO 2 tabs x2 days, then, TAB 06/07/17 Discontinued Scripts Levofloxacin (Levofloxacin) 500 Mg Tablet, 1 TAB PO DAILY for 10 Days, #10 TAB 0 Refills Prov:ASIF PEARSON 10/11/21 ABE LARA MD September 19, 2024 22:31
== END 2024-09-18 12:15 | disposition home or self-care (01) | DRG 189 ==
LOC: EDH 12:45 → EDHIP 14:41 → 3BH 23:57
PROVIDERS: ADMIT Internal Medicine; ATTEND Internal Medicine
DX: J96.91 Respiratory failure, unspecified with hypoxia (principal); J44.1 Chronic obstructive pulmonary disease with (acute) exacerbation; R64 Cachexia; D72.829 Elevated white blood cell count, unspecified; I10 Essential (primary) hypertension; Z88.8 Allergy status to other drugs, medicaments and biological substances; Z79.899 Other long term (current) drug therapy
CPT/HCPCS: 36415; 36600; 71045; 80048; 80053; 82435; 82550; 82803; 82947; 83605; 83880; 84132; 84295; 84484; 85018; 85025; 87040; 93005; 94640; 94664; 99285; G0378; J0456; J0696; J1650; J2919; J7120